=== PATIENT | female | born 1960 | race Caucasian/White ===

== ENCOUNTER → 2017-07-15 | Outpatient (CLI) | payer BC | LOC: RAD 13:30 | DX: Z12.31 Encounter for screening mammogram for malignant neoplasm of breast (principal) ==

== ENCOUNTER → 2018-11-25 | Outpatient (CLI) | payer BC | LOC: RAD 16:30 | DX: R07.81 Pleurodynia (principal); M47.814 Spondylosis without myelopathy or radiculopathy, thoracic region ==

== ENCOUNTER → 2019-04-14 | Outpatient (CLI) | payer BC | LOC: NUC 10:00 | DX: M81.0 Age-related osteoporosis without current pathological fracture (principal); M85.89 Other specified disorders of bone density and structure, multiple sites; Z78.0 Asymptomatic menopausal state ==

== ENCOUNTER → 2020-03-05 | Outpatient (CLI) | payer BC | LOC: CAT 10:13 | PROVIDERS: ATTEND Neuromusculoskeletal Medicine & OMM | DX: N20.0 Calculus of kidney (principal); N20.1 Calculus of ureter; R31.0 Gross hematuria; N83.202 Unspecified ovarian cyst, left side; N83.201 Unspecified ovarian cyst, right side ==